=== PATIENT | male | born 1950 | race African-American/Black ===

== ENCOUNTER 2017-11-16 13:01 | Emergency (ER) | payer OTHER ==
[~2017-11-16] VITALS: Ht 177.8 cm; Wt 83.0 kg
[2017-11-16] MEDS ORDERED: ALBU2.5V13 IH (13:18)
[2017-11-16 18:06] LABS: HEMATOCRIT. 37.7 % (42.0-52.0); HEMOGLOBIN. 12.3 g/dL (14.0-18.0); MEAN CORPUSCULAR HEMOGLOBIN 26.7 pg (28.0-32.0); MEAN PLATELET VOLUME 8.2 fl (7.4-10.4); PLATELET 176 x1000/uL (130-400); RED BLOOD CELL COUNT 4.59 mill/uL (4.7-6.1)
[2017-11-16 18:10] LABS: PROTHROMBIN TIME 10.7 sec (9.4-11.6)
[2017-11-16 18:14] LABS: CHLORIDE 106 mEq/L (98-107)
[2017-11-16 19:33] LABS: PLATELET ESTIMATE NORMAL
[2017-11-16] MEDS ORDERED: IBUPROFEN 600MG TABLET PO ONE (19:45)
[2017-11-16] MEDS ORDERED: CAPSAICIN 0.075% CREAM 60GM TOP PRN (21:00)
[2017-11-16 21:17] VITALS: BP 123/80
== END 2017-11-16 21:17 | disposition home or self-care (01) ==
LOC: ER 13:18
DX: M47.22 Other spondylosis with radiculopathy, cervical region (principal); M50.10 Cervical disc disorder with radiculopathy, unspecified cervical region; E11.9 Type 2 diabetes mellitus without complications; M46.90 Unspecified inflammatory spondylopathy, site unspecified; M85.812 Other specified disorders of bone density and structure, left shoulder; M19.012 Primary osteoarthritis, left shoulder; E88.09 Other disorders of plasma-protein metabolism, not elsewhere classified; E86.0 Dehydration; D50.9 Iron deficiency anemia, unspecified; D72.819 Decreased white blood cell count, unspecified; R10.9 Unspecified abdominal pain; J45.909 Unspecified asthma, uncomplicated; Z88.0 Allergy status to penicillin
CPT/HCPCS: 36415; 71045; 72040; 73030; 73070; 80053; 83036; 83880; 84484; 85025; 85610; 87040; 93005; 93923; 93970; 99285; J7050

== ENCOUNTER 2019-08-19 18:58 | Emergency (ER) | payer OTHER ==
[~2019-08-19] VITALS: Ht 175.3 cm; Wt 84.0 kg
[~2019-08-19 18:58] MED LIST: ALBU2.5V13 IH
[2019-08-19] MEDS ORDERED: MORPHINE SULFATE 4 MG/ML CPJ (NOT FOR IM USE) IV STA (19:34)
[2019-08-19] MEDS ORDERED: ONDANSETRON HCL 4MG/2ML INJ IV STA (19:34)
[2019-08-19] MEDS ORDERED: SODIUM CHLORIDE 0.9% 1,000 ML IV ONE (19:34)
[2019-08-19 20:27] LABS: BASOPHILS % 0.5 % (0.0-2.0); EOSINOPHILS % 4.1 % (0.0-5.0); HEMATOCRIT. 37.8 % (42.0-52.0); HEMOGLOBIN. 12.1 g/dL (14.0-18.0); LYMPHOCYTES % 12.6 % (20.0-50.0); MEAN CORPUSCULAR HEMOGLOBIN 26.2 pg (28.0-32.0); MEAN CORPUSCULAR VOLUME 81.8 fL (80.0-94.0); MEAN PLATELET VOLUME 8.4 fl (7.4-10.4); MONOCYTES % 14.3 % (2.0-8.0); NEUTROPHILS % 68.5 % (40.0-76.0); PLATELET 171 x1000/uL (130-400); RED BLOOD CELL COUNT 4.62 mill/uL (4.7-6.1); RED CELL DISTRIBUTION WIDTH 13.4 % (11.6-14.6)
[2019-08-19 20:33] LABS: CHLORIDE 108 mEq/L (98-107)
[2019-08-19 20:58] LABS: CLARITY URINE CLEAR (CLEAR); COLOR URINE YELLOW (YELLOW); KETONES URINE NEGATIVE (NEGATIVE); LEUKOCYTE ESTERASE URINE NEGATIVE (NEGATIVE); NITRITE URINE NEGATIVE (NEGATIVE); OCCULT BLOOD URINE NEGATIVE (NEGATIVE); PH URINE 5.5 (4.5-8.0); PROTEIN URINE NEGATIVE (NEGATIVE); UROBILINOGEN URINE 0.2 E.U./dL (0.2-1.0)
[2019-08-19 21:35] LABS: PROTHROMBIN TIME 10.3 sec (9.6-11.0)
[2019-08-20] MEDS ORDERED: NA PHOS,M-B/NA PHOS,DI-BA ENEMA 118ML PR ONE (02:00)
[2019-08-20 02:48] VITALS: BP 138/92
[2019-08-20] MEDS ORDERED: IOHEXOL-300 100 ML BOTTLE ONE (03:21)
== END 2019-08-20 02:52 | disposition home or self-care (01) ==
LOC: ER 18:58 → CANBEDREQ 08-20 05:48
DX: K59.00 Constipation, unspecified (principal); J45.909 Unspecified asthma, uncomplicated; Z88.0 Allergy status to penicillin
CPT/HCPCS: 36415; 71045; 74177; 80053; 81003; 83690; 83880; 84484; 85025; 85610; 93005; 96374; 96375; 99284; C1893; J2270; J2405; J7030; Q9967

== ENCOUNTER 2022-08-04 13:47 | Emergency (ER) | payer OTHER ==
[~2022-08-04] VITALS: Ht 175.3 cm; Wt 70.0 kg
[2022-08-04 13:55] VITALS: BP 140/76
[2022-08-04 16:10] LABS: BASOPHILS % 0.4 % (0.0-2.0); EOSINOPHILS % 2.2 % (0.0-5.0); HEMATOCRIT. 40.3 % (42.0-52.0); HEMOGLOBIN. 13.1 g/dL (14.0-18.0); LYMPHOCYTES % 7.6 % (20.0-50.0); MEAN CORPUSCULAR HEMOGLOBIN 26.6 pg (28.0-32.0); MEAN CORPUSCULAR VOLUME 81.9 fL (80.0-94.0); MEAN PLATELET VOLUME 8.3 fl (7.4-10.4); MONOCYTES % 5.4 % (2.0-8.0); NEUTROPHILS % 84.4 % (40.0-76.0); PLATELET 199 x1000/uL (130-400); PROTHROMBIN TIME 10.9 sec (9.6-11.0); RED BLOOD CELL COUNT 4.92 mill/uL (4.7-6.1); RED CELL DISTRIBUTION WIDTH 13.9 % (11.6-14.6)
[2022-08-04 17:19] LABS: CLARITY URINE CLEAR (CLEAR); COLOR URINE YELLOW (YELLOW); KETONES URINE TRACE (NEGATIVE); LEUKOCYTE ESTERASE URINE NEGATIVE (NEGATIVE); NITRITE URINE NEGATIVE (NEGATIVE); OCCULT BLOOD URINE NEGATIVE (NEGATIVE); PROTEIN URINE NEGATIVE (NEGATIVE); SPECIFIC GRAVITY URINE 1.028 (1.005-1.030)
[2022-08-04 20:33] LABS: CHLORIDE 106 mEq/L (98-107)
[2022-08-04 21:42] LABS: CHLORIDE 106 mEq/L (98-107)
== END 2022-08-05 00:50 | disposition home or self-care (01) ==
LOC: ER 15:39
DX: K63.9 Disease of intestine, unspecified (principal); R10.9 Unspecified abdominal pain; J45.909 Unspecified asthma, uncomplicated; M19.90 Unspecified osteoarthritis, unspecified site; Z88.0 Allergy status to penicillin
CPT/HCPCS: 36415; 74176; 80048; 80053; 81003; 85025; 99284

== ENCOUNTER 2024-03-07 21:28 | Emergency (ER) | payer OTHER ==
[~2024-03-07] VITALS: Ht 180.3 cm; Wt 66.0 kg
[2024-03-07 21:29] VITALS: O2SAT 95
[2024-03-07] MEDS: KETOROLAC 30MG/ML VIAL IM ONE (22:56)
[2024-03-08] MEDS ORDERED: DICL100G58 TP (00:16)
[2024-03-08 04:09] VITALS: BP 116/73; PULSE 88; RESP 12; TEMP 97.9
== END 2024-03-08 04:09 | disposition home or self-care (01) ==
LOC: ER 21:28
DX: S43.402A Unspecified sprain of left shoulder joint, initial encounter (principal); J45.909 Unspecified asthma, uncomplicated; Z88.0 Allergy status to penicillin; X58.XXXA Exposure to other specified factors, initial encounter; Y93.89 Activity, other specified; Y92.89 Other specified places as the place of occurrence of the external cause; Y99.8 Other external cause status
CPT/HCPCS: 99283; 73030; 96372; J1885

== ENCOUNTER 2024-03-11 01:10 | Emergency (ER) | payer OTHER ==
[~2024-03-11] VITALS: Ht 182.9 cm; Wt 80.0 kg
[~2024-03-11 01:10] MED LIST changes: +DICL100G58 TP
[2024-03-11 01:15] VITALS: O2SAT 100
[2024-03-11] MEDS: MORPHINE SULFATE 2 MG/ML INJ (NOT FOR IM USE) IV ONE (01:45)
[2024-03-11 02:06] LABS: HEMATOCRIT. 34.3 % (42.0-52.0); HEMOGLOBIN. 11.1 g/dL (14.0-18.0); MEAN CORPUSCULAR HEMOGLOBIN 26.5 pg (28.0-32.0); MEAN CORPUSCULAR HGB CONC 32.2 g/dL (31.0-37.0); MEAN CORPUSCULAR VOLUME 82.2 fL (80.0-94.0); MEAN PLATELET VOLUME 7.9 fl (7.4-10.4); PLATELET 188 x1000/uL (130-400); RED BLOOD CELL COUNT 4.18 mill/uL (4.7-6.1); RED CELL DISTRIBUTION WIDTH 13.4 % (11.6-14.6); WHITE BLOOD COUNT 5.4 x1000/uL (4.5-11.0)
[2024-03-11 02:09] LABS: DIFFERENTIAL COMMENT 1
[2024-03-11 02:11] LABS: CHLORIDE 106 mEq/L (98-107); POTASSIUM 4.3 mEq/L (3.5-5.1); SODIUM 141 mEq/L (136-145)
[2024-03-11 02:12] LABS: CALCIUM 9.2 mg/dL (8.7-10.4); CARBON DIOXIDE 30 mEq/L (21-32)
[2024-03-11 02:17] LABS: CREATININE 1.3 mg/dL (0.6-1.3); GLUCOSE 100 mg/dL (70-105); UREA NITROGEN BLOOD 20 mg/dL (9-23)
[2024-03-11 02:27] LABS: TROPONIN I HIGH SENSITIVITY < 4 ng/L (3.0-53)
[2024-03-11 04:03] LABS: ATYPICAL LYMPHOCYTES 2
[2024-03-11 04:04] LABS: OVALOCYTES 1+; PLATELET ESTIMATE NORMAL; TEAR DROP CELLS 1+
[2024-03-11] MEDS: ASPIRIN 81MG TABLET PO ONE (06:47)
[2024-03-11] MEDS ORDERED: IOHEXOL-350 100 ML BOTTLE ONE (07:26)
[2024-03-11 08:14] LABS: TROPONIN I HIGH SENSITIVITY < 4 ng/L (3.0-53)
[2024-03-11 10:18] VITALS: BP 122/77; PULSE 71; RESP 16; TEMP 98.6
== END 2024-03-11 11:02 | disposition short-term general hospital (02) ==
LOC: ER 01:43 → CANBEDREQ 09:10 → ER 11:02
DX: R07.9 Chest pain, unspecified (principal); J45.909 Unspecified asthma, uncomplicated; Z88.0 Allergy status to penicillin
CPT/HCPCS: 99285; 96374; 71275; 71045; 80048; 83880; 85025; 85379; 84484; 36415; 93005; Q9967; J2270